=== PATIENT | male | born 1975 | race African-American/Black ===

== ENCOUNTER 2020-08-04 21:27 | Emergency (ER) | payer MEDICAID ==
[~2020-08-04] VITALS: Ht 170.2 cm; Wt 47.6 kg
--- NOTE | 2020-08-04 21:30 | NUR ---
PT [facility] C/O DIARRHEA X3 DAYS. PT AAOX4. VITAL SIGNS STABLE. RESPIRATIONS EVEN AND UNLABORED. NO ACUTE DISTRESS NOTED AT THIS TIME
[2020-08-04] MEDS ORDERED: IV NS 0.9% 1,000 ML BAG IV ONE ×2 (22:00→22:30)
[2020-08-04 22:03] LABS: BASOPHILS # (AUTO) 0.1 /CMM (0.0-0.2); BASOPHILS % (AUTO) 1.4 % (0.0-2.0); EOSINOPHILS % (AUTO) 5.8 % (0.0-6.0); HEMATOCRIT 33 % (39-51); HEMOGLOBIN 11.1 g/dL (13.5-17.5); LYMPHOCYTES # (AUTO) 1.2 /CMM (0.8-4.8); MEAN CORPUSCULAR HGB CONC 33 g/dl (31.0-36.0); MEAN CORPUSCULAR VOLUME 89 fL (80-96); MONOCYTES # (AUTO) 0.9 /CMM (0.1-1.30); MONOCYTES % (AUTO) 11.8 % (2.0-12.0); NEUTROPHILS # (AUTO) 4.7 /CMM (1.8-8.9); PLATELET COUNT (AUTO) 241 /CMM (150-450); RED BLOOD CELL COUNT(AUTO) 3.74 MIL/uL (4.5-6.0); WHITE BLOOD COUNT (AUTO) 7.3 K/uL (4.3-11.0)
[2020-08-04 22:16] LABS: ALBUMIN 3.4 g/dL (3.4-5.0); BILIRUBIN,TOTAL 0.2 mg/dL (0.2-1.0); CALCIUM, SERUM 9.2 mg/dL (8.5-10.1); CREATININE 2.2 mg/dL (0.6-1.3); POTASSIUM 4.1 mmol/L (3.5-5.1); TOTAL PROTEIN, SERUM 7.8 g/dL (6.4-8.2)
--- NOTE | 2020-08-04 22:25 | NUR ---
PT HAD ONE EPISODE OF VOMITTING, AWARE
[2020-08-04] MEDS ORDERED: ONDANSETRON HCL/PF 4 MG/2 ML VIAL ONE (22:29)
[2020-08-04] MEDS ORDERED: ONDANSETRON HCL/PF 4 MG/2 ML VIAL IV ONE (22:30)
[2020-08-04] MEDS ORDERED: ONDA4TAB5 PO (23:01)
--- NOTE | 2020-08-04 23:12 | NUR ---
CALLED [facility] ETA [id number]
--- NOTE | 2020-08-05 00:10 | NUR ---
PT CLEANED AND CHANGED
--- NOTE | 2020-08-05 00:20 | NUR ---
SPOKE WITH SAWYER BURROWS FROM [facility] TO INFORM PT WILL RETURN TO FACILITY, VERBALIZED UNDERSTANDING
--- NOTE | 2020-08-05 00:28 | NUR ---
Note doretha in ED - 08/05/20 at 0029 by TALIB Patient discharged to home in stable condition. Written and verbal after care instructions given. Patient verbalizes understanding of instruction.IV removed. Catheter intact and site benign. Pressure and 4x4 applied to site. No bleeding noted.Pt ambulatory with a steady gait
--- NOTE | 2020-08-05 00:29 | NUR ---
REPORT GIVEN TO [facility]
[2020-08-05 00:45] VITALS: BP 132/67
== END 2020-08-05 00:29 | disposition home or self-care (01) ==
LOC: ER 21:30
DX: A08.4 Viral intestinal infection, unspecified (principal); E86.0 Dehydration; I12.9 Hypertensive chronic kidney disease with stage 1 through stage 4 chronic kidney disease, or unspecified chronic kidney disease; E11.22 Type 2 diabetes mellitus with diabetic chronic kidney disease; N18.9 Chronic kidney disease, unspecified; D63.1 Anemia in chronic kidney disease; Z60.2 Problems related to living alone; Z79.899 Other long term (current) drug therapy
CPT/HCPCS: 36415; 80048; 80076; 85025; 87045; 87493; 96361; 96374; 99283; J2405; J7030 ×2